=== PATIENT | female | born 1940 | race Caucasian/White ===

== ENCOUNTER → 2024-03-27 06:44 | Outpatient (REF) | payer OTHER, SELFPAY | LOC: MRI 06:44 | PROVIDERS: ATTENDING PHYSICIAN Psychiatry & Neurology Vascular Neurology; FAMILY PHYSICIAN Family Medicine; REFERRING PHYSICIAN Psychiatry & Neurology Neurology | DX: G30.9 Alzheimer's disease, unspecified (principal) | CPT/HCPCS: 70551 ==

== ENCOUNTER 2025-10-01 18:15 | Emergency (ER) | payer OTHER, SELFPAY ==
[2025-10-01 18:17] VITALS: BP 120/63
[2025-10-01 18:22] VITALS: BP 120/63
[2025-10-01 18:36] LABS: Hematocrit 35.6 % (37.0-47.0); Hemoglobin 11.7 g/dL (12.0-16.0); Mean Corp Hgb Conc. 32.9 g/dL (33.0-37.0); Mean Corpuscular Volume 93.0 fL (81.0-99.0); Nucleated Red Blood Cells % 0 %; Platelet Count 288 10^3/uL (130-400); Red Cell Dist. Width 13.9 % (11.5-14.5)
[2025-10-01 18:48] LABS: ALT (SGPT) 11 U/L (0-35); AST (SGOT) 18 U/L (14-36); Albumin 4.1 g/dl (3.5-5.0); Alkaline Phosphatase 60 U/L (38-126); Blood Urea Nitrogen 30 mg/dl (7-17); Calcium 9.1 mg/dl (8.4-10.2); Carbon Dioxide 24 mmol/L (22-30); Chloride 106 mmol/L (98-107); Glucose 93 mg/dl (70-99); Potassium 4.1 mmol/L (3.5-5.1); Sodium 137 mmol/L (135-145); Total Protein 7.3 g/dl (6.3-8.2); eGFR 55.90
--- NOTE | 2025-10-01 18:57 | ED.GENMED ---
History of Present Illness
General
Chief Complaint: Fainting/Passed Out
Source: patient
Exam Limitations: none
Time Seen by Provider: 10/01/25 18:42
History of Present Illness
History of Present Illness:
85-year-old female with history of dementia presents after a possible syncopal episode while preparing to eat dinner. She was at a restaurant drinking a glass of wine. Her states he had about a half of of the glass finished and she started
to feel lightheaded. She then sat down with a friend and proceeded to put her head down. Her thinks she passed out for couple seconds and came to fairly quickly. She did feel dizzy prior to this. There was no mention of any chest pain.
It is difficult to get a good historian currently from the patient given her dementia. She does deny any current pain. No prior syncopal episodes. endorses that they had several meals earlier in the day.
Phy Exam
Physical Exam
Physical Exam:
General: Well-appearing female no acute respiratory distress HEENT: Normal cephalic atraumatic
Heart: Regular rate and rhythm
Lungs: Clear no wheeze
Abdomen is soft nontender nondistended
Extremities: No cyanosis or edema
Neurologic exam: Alert oriented to person and place
Course
Orders/Labs/Results
Orders:
Orders
10/01/25 18:20
Electrocardiogram (*1) Urgent
Reason for Study: Syncope
EKG- Treatment ONCE
10/01/25 18:30
Complete Blood Count/With Diff Urgent
Comprehensive Metabolic Panel Urgent
10/01/25 18:53
0.9% Sodium Chloride 1000 ml [Nss] 1,000 ml IV BOLUS
Abnormal Lab Results
10/01/25
18:30
RBC 3.83 L 10^6/uL
(4.20-5.40)
Hgb 11.7 L g/dL
(12.0-16.0)
Hct 35.6 L %
(37.0-47.0)
MCHC 32.9 L g/dL
(33.0-37.0)
Absolute Monos (auto) 0.7 H 10^3/uL
(0.1-0.6)
Lymphocytes % 20.0 L %
(20.5-51.1)
BUN 30 H mg/dl
(7-17)
10/01/25 18:30
10/01/25 18:30
Vital Signs
Initial and Last Documented VS:
Initial Vital Signs
Temp Pulse Resp BP Pulse Ox
98.0 F 83 18 120/63 99
10/01/25 18:17 10/01/25 18:17 10/01/25 18:17 10/01/25 18:17 10/01/25 18:17
Last Documented Vital Signs
Temp Pulse Resp BP Pulse Ox
98.0 F 96 12 121/70 99
10/01/25 18:17 10/01/25 20:00 10/01/25 20:00 10/01/25 20:00 10/01/25 20:00
MDM/Problems Addressed
Differential Diagnosis Includes:
Possible syncope versus near syncope. Consider vasovagal versus arrhythmia versus anemia. Patient does describe some preceding symptoms. EKG shows sinus rhythm here. Will keep on monitor and check labs. Fluids ordered.
*Pulse Oximetry
SaO2: 99
Oxygen Mode of Delivery: Room air
Patient hypoxic: no
*Critical Care Note
Total Time (30-74mins, 75-104mins- exclusive of procedures): Not Applicable
Update Note
Update Note:
Patient hydrated labs reviewed without significant finding. She is feeling better. She is ambulatory without any ataxia. I suspect vasovagal episode. Stable for discharge
ED Attending Note
-
Portions of this chart may have been created with voice recognition software.� Occasional wrong word or��sound alike� substitutions may have occurred due to the inherent limitations of voice recognition software.
Discharge Plan
Departure
Patient Disposition: Home (Routine Discharge)
Date of Disposition: 10/01/25
Time of Disposition: 20:24
Patient with high blood pressure during this ER visit?: No
Discharge Problem:
Near syncope
Instructions: Syncope (Fainting) (DC)
Referrals:
Shelly Hooper CRNP [Family Provider, Family Practice]
Activity Restrictions/Additional Instructions:
Rest. Stay hydrated. Return if worse otherwise follow-up with your doctor
Interventions
Interventions:
*Risk Screen - Suicide Last Done: 10/01/25 18:17
*General Assessment Last Done: 10/01/25 18:17
*Neglect/Abuse Screening Last Done: 10/01/25 18:17
*ED COVID-19 Vaccine History Last Done: 10/01/25 18:17
*ED Influenza Vaccine History Last Done: 10/01/25 18:17
ED- Cardiac Assessment Last Done: 10/01/25 18:51
ED- Neurological Assessment Last Done: 10/01/25 18:51
Discharge Date and Time
Print Language: UKRAINIAN
[2025-10-01 19:00] VITALS: BP 115/83
[2025-10-01] MEDS: NSS 1000 IV (19:08)
[2025-10-01 20:00] VITALS: BP 121/70
== END 2025-10-01 20:38 | disposition home or self-care (01) ==
LOC: EMR 18:15
PROVIDERS: EMERGENCY PHYSICIAN Emergency Medicine; FAMILY PHYSICIAN Nurse Practitioner
DX: R55 Syncope and collapse (principal); F03.90 Unspecified dementia, unspecified severity, without behavioral disturbance, psychotic disturbance, mood disturbance, and anxiety
CPT/HCPCS: 99284; 96360; 80053; 85025; 93005